=== PATIENT | male | born 1975 | race Caucasian/White ===

== ENCOUNTER 2020-09-22 20:22 | Emergency (ER) | payer OTHER, SELFPAY ==
[2020-09-22 20:27] VITALS: BP 145/88; PULSE 73; RESP 16; TEMP 37.3; O2SAT 98; BMI 22.4
--- NOTE | 2020-09-22 20:34 | ECG_ITS ---
Test Reason : CP/IVDA Blood Pressure : / mmHG Vent. Rate : 075 BPM Atrial Rate : 075 BPM P-R Int : 186 ms QRS Dur : 084 ms QT Int : 386 ms P-R-T Axes : 056 023 006 degrees QTc Int : 431 ms Normal sinus rhythm Normal ECG No previous ECGs available Referred By: Generic ED Physician Electronically Signed By:CHRISTIANO WARREN
--- NOTE | 2020-09-22 20:52 | ED.CHESTPAIN ---
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 Also patient complaining of chest pain since afternoon today used cocaine at 10:00. No radiation of pain no shortness of breath no diaphoresis no loss of consciousness no cough Related Data Allergies Allergy/AdvReac Type Severity Reaction Status Date / Time No Known Allergies Allergy Verified 09/22/20 20:26 Review of Systems Review of Systems: Constitutional : No Weight loss, No Fever, No Chills ENT/Mouth : No sore throat, No Rhinorrhea Eyes: No Eye Pain, No Swelling Cardiovascular : + Chest Pain, no palpitations Respiratory : No Cough, No Sputum, no shortness of breath Gastrointestinal : no Nausea, No Vomiting, No Diarrhea, No abdominal Pain, no black stools Genitourinary : No Dysuria, No Urinary Frequency Musculoskeletal : No joint pain, No Myalgias, No Joint Swelling Skin : No Skin Lesions, No rash Neuro : No Weakness, No Numbness, No Dizziness, No Headache Psych : No Anxiety/Panic, No Depression Heme/Lymph: No Bruising, No Lymphadenopathy Endocrine : No Polyuria, No Polydipsia All other systems reviewed and are negative [facility] Past Medical History Medical History Asthma HIV (human immunodeficiency virus infection) Hypertension IVDU (intravenous drug user) Social History Social History Advance Directives: No Advance Directives Information Provided: No Physical Exam Vital Signs: Vital Signs: Last Vital Signs Temp 98.3 F 09/22/20 22:00 Pulse 75 09/22/20 22:00 Resp 18 09/22/20 22:00 BP 130/72 09/22/20 22:00 Pulse Ox 98 09/22/20 22:00 Body Mass Index 22.4 Appearance: Alert. Oriented X3. No acute distress. Eyes: PERRLA, No Nystagmus ENT: Pharynx normal. Oral Mucosa moist Neck: Normal inspection. Neck supple. CVS: Normal heart rate and rhythm. Pulses normal. Respiratory: No respiratory distress. Equal air entry bilateral, no wheezing/rales/rhonchi Abdomen: Soft and nontender. Bowel sounds are present, no mass palpable, no CVA tenderness Skin: Skin warm and dry. Normal skin color. Normal skin turgor. IVDA duke++ Extremities: No lower extremity edema. No calf tenderness Neuro: Oriented X 3. No motor deficit. No sensory deficit.No cerebellar signs , cranial nerves II-XII intact MDM - Chest Pain MDM Narrative Medical decision making narrative: Patient with atypical chest pain no EKG changes , troponin is negative. Patient has bed in detox in the morning will go home and go to detox place the morning Lab Data Attestation: I reviewed the patient's lab results. Result diagrams: 09/22/20 21:43 09/22/20 21:43 Labs: Lab Results 09/22/20 09/22/20 09/22/20 Range/Units 21:01 21:01 21:24 WBC (4.8-10.8) X10*3/uL RBC (4.60-5.80) X10*6/uL Hgb (14.0-18.0) g/dl Hct (42-52) % MCV (80-98) fL MCH (27.0-33.0) pg MCHC (31.0-36.0) g/dl RDW (11.0-16.0) % Plt Count (160-400) X10*3/uL MPV (9.4-12.4) fL Immature Gran % (Auto) (0.0-0.4) % Neut % (Auto) (45-73) % Lymph % (Auto) (20-40) % [place] % (Auto) (2-11) % Eos % (Auto) (0-4) % Baso % (Auto) (0-2) % Lymph # (Auto) (1.2-4.9) X10*3/uL [place] # (Auto) (0.1-1.2) X10*3/uL Eos # (Auto) (0.0-0.4) X10*3/uL Baso # (Auto) (0.0-0.2) X10*3/uL Abs Immat Gran (auto) (0.00-0.03) X10*3/uL Absolute Neuts (auto) (2.0-8.3) X10*3/uL Absolute Nucleated RBC (0.0-0.012) X10*3/uL Nucleated RBC % (auto) (0.0-0.2) /100WBC Sodium (135-145) mmol/L Potassium (3.3-5.1) mmol/L Chloride (96-108) mmol/L Carbon Dioxide (22-29) mmol/L Anion Gap (12-20) BUN (9-16) mg/dL Creatinine (0.5-1.4) mg/dL Estim Creat Clear Calc Estimated GFR Random Glucose (60-115) mg/dL Calcium (8.4-10.2) mg/dL Troponin I High Sens (<3.5-35.0) ng/L Urine Color YELLOW Urine Appearance CLEAR Urine pH 7.0 (5.0-8.0) Ur Specific [place] 1.010 (1.005-1.025) Urine Protein NEG (NEG-TRACE) MG/DL Urine Glucose (UA) NEG (NEG) MG/DL Urine Ketones NEG (NEG) MG/DL Urine Blood NEG (NEG) Urine Nitrite NEG (NEG) Ur Leukocyte Esterase NEG (NEG) Urine RBC 0-2 (0) /HPF Urine WBC 0 (0-4) /HPF Ur Squamous Epith Cells NONE /LPF Amorphous Sediment 2+ /LPF Urine Bacteria NONE /LPF Urine Opiates Screen POSITIVE H (Not Detect) Ur Barbiturates Screen Not Detected (Not Detect) Ur Phencyclidine Scrn Not Detected (Not Detect) Ur Amphetamines Screen Not Detected (Not Detect) U Benzodiazepines Scrn Not Detected (Not Detect) Urine Cocaine Screen POSITIVE H (Not Detect) U Marijuana (THC) Screen Not Detected (Not Detect) COVID-19 ([place]) Negative (Negative) COVID-19 Clin Com See Note 09/22/20 09/22/20 09/22/20 Range/Units 21:43 21:43 21:43 WBC 4.4 L (4.8-10.8) X10*3/uL RBC 4.72 (4.60-5.80) X10*6/uL Hgb 11.9 L (14.0-18.0) g/dl Hct 38.2 L (42-52) % MCV 80.9 (80-98) fL MCH 25.2 L (27.0-33.0) pg MCHC 31.2 (31.0-36.0) g/dl RDW 13.2 (11.0-16.0) % Plt Count 136 L (160-400) X10*3/uL MPV 12.1 (9.4-12.4) fL Immature Gran % (Auto) 0.2 (0.0-0.4) % Neut % (Auto) 38.5 L (45-73) % Lymph % (Auto) 43.3 H (20-40) % Windham % (Auto) 12.2 H (2-11) % Eos % (Auto) 5.3 H (0-4) % Baso % (Auto) 0.5 (0-2) % Lymph # (Auto) 1.9 (1.2-4.9) X10*3/uL [place] # (Auto) 0.5 (0.1-1.2) X10*3/uL Eos # (Auto) 0.2 (0.0-0.4) X10*3/uL Baso # (Auto) 0.0 (0.0-0.2) X10*3/uL Abs Immat Gran (auto) 0.01 (0.00-0.03) X10*3/uL Absolute Neuts (auto) 1.7 L (2.0-8.3) X10*3/uL Absolute Nucleated RBC 0.000 (0.0-0.012) X10*3/uL Nucleated RBC % (auto) 0.0 (0.0-0.2) /100WBC Sodium 141 (135-145) mmol/L Potassium 3.7 (3.3-5.1) mmol/L Chloride 107 (96-108) mmol/L Carbon Dioxide 26 (22-29) mmol/L Anion Gap 12 (12-20) BUN 15 (9-16) mg/dL Creatinine 0.79 (0.5-1.4) mg/dL Estim Creat Clear Calc 85.5 Estimated GFR > 60 Random Glucose 102 (60-115) mg/dL Calcium 9.1 (8.4-10.2) mg/dL Troponin I High Sens < 3.5 (<3.5-35.0) ng/L Urine Color Urine Appearance Urine pH (5.0-8.0) Ur Specific [place] (1.005-1.025) Urine Protein (NEG-TRACE) MG/DL Urine Glucose (UA) (NEG) MG/DL Urine Ketones (NEG) MG/DL Urine Blood (NEG) Urine Nitrite (NEG) Ur Leukocyte Esterase (NEG) Urine RBC (0) /HPF Urine WBC (0-4) /HPF Ur Squamous Epith Cells /LPF Amorphous Sediment /LPF Urine Bacteria /LPF Urine Opiates Screen (Not Detect) Ur Barbiturates Screen (Not Detect) Ur Phencyclidine Scrn (Not Detect) Ur Amphetamines Screen (Not Detect) U Benzodiazepines Scrn (Not Detect) Urine Cocaine Screen (Not Detect) U Marijuana (THC) Screen (Not Detect) COVID-19 ([place]) (Negative) COVID-19 Clin Com ECG Data ECG #1: Attestation: I personally reviewed and interpreted this ECG as follows: Interpretation: Normal sinus rhythm heart rate 75 beats per minute normal intervals normal axis no acute ST T wave changes no acute ischemia Discharge Plan Discharge Clinical Impression: Atypical chest pain, Substance abuse Patient Disposition: Home, Self-Care Instructions: Chest Pain (ED), Polysubstance Abuse (ED) Additional Instructions: Do not use cocaine/heroin Follow-up with detox Medically cleared for detox admission
[2020-09-22 21:09] LABS: Glucose Urine UA NEG (NEG); Leukocyte Esterase Urine NEG (NEG); Nitrite Urine NEG (NEG); Urine Blood NEG (NEG); Urine Ketones NEG (NEG); Urine Protein NEG (NEG-TRACE)
[2020-09-22 21:11] LABS: Appearance Urine CLEAR; Color Urine YELLOW
[2020-09-22 21:19] LABS: Amorphous Sediment Urine 2+ /LPF; RBC Urine 0-2 /HPF (0); WBC Urine 0 /HPF (0-4)
[2020-09-22 21:32] LABS: Amphetamine Screen Urine Not Detected (Not Detect); Barbiturates, Urine Not Detected (Not Detect); Benzodiazepines Screen Urine Not Detected (Not Detect); Cannabinoid Screen Urine Not Detected (Not Detect); Cocaine Screen Urine POSITIVE (Not Detect); Opiate Screen Urine POSITIVE (Not Detect); Phencyclidine Screen Urine Not Detected (Not Detect)
[2020-09-22 21:48] LABS: MANUAL DIFF FLAG NO
[2020-09-22 21:49] LABS: Basophils Percent Auto 0.5 % (0-2); Eosinophils Absolute Auto 0.2 X10*3/uL (0.0-0.4); Eosinophils Percent Auto 5.3 % (0-4); Hematocrit 38.2 % (42-52); Hemoglobin 11.9 g/dl (14.0-18.0); Imm Gran Abs Auto 0.01 X10*3/uL (0.00-0.03); Imm Gran Pct Auto 0.2 % (0.0-0.4); Lymphocytes Absolute Auto 1.9 X10*3/uL (1.2-4.9); Lymphocytes Percent Auto 43.3 % (20-40); Mean Corpuscular HGB Conc 31.2 g/dl (31.0-36.0); Mean Corpuscular Hemoglobin 25.2 pg (27.0-33.0); Mean Corpuscular Volume 80.9 fL (80-98); Mean Platelet Volume 12.1 fL (9.4-12.4); Monocytes Absolute Auto 0.5 X10*3/uL (0.1-1.2); Monocytes Percent Auto 12.2 % (2-11); Neutrophils Absolute Auto 1.7 X10*3/uL (2.0-8.3); Neutrophils Percent Auto 38.5 % (45-73); Platelet Count 136 X10*3/uL (160-400); Red Blood Count 4.72 X10*6/uL (4.60-5.80); Red Cell Distribution Width 13.2 % (11.0-16.0); White Blood Count 4.4 X10*3/uL (4.8-10.8)
--- NOTE | 2020-09-22 21:51 | PC.NURSE ---
While the patient was using the bathroom and providing urine specimen, high school academic coach (Renato) was at the bedside with the patient, and reports that the patient took some pills . When this RN asked the patient what medication/drug he took, pt stated a couple of Klonopin . Denies SI/HI. Admits to IV Heroin and Cocaine use earlier today, but seeking detox. Belongings removed from bedside and searched/secured by security in ED Pod Locker #9. No pills, drugs, weapons, or other contraband found by this RN or security. Changeover without issue. Pt then moved to ED 6Hall for close observation. Vitals unchanged. Will continue to monitor.
[2020-09-22 21:56] LABS: COVID-19 Test Negative (Negative)
[2020-09-22 22:00] VITALS: BP 130/72; PULSE 75; RESP 18; TEMP 36.8; O2SAT 98
[2020-09-22 22:11] LABS: Anion Gap 12 (12-20); Blood Urea Nitrogen 15 mg/dL (9-16); Calcium 9.1 mg/dL (8.4-10.2); Carbon Dioxide 26 mmol/L (22-29); Chloride 107 mmol/L (96-108); Creatinine Clr Calc Pharmacy 85.5; Estimated Glomerular Filt Rate > 60; Glucose Random 102 mg/dL (60-115); Potassium 3.7 mmol/L (3.3-5.1); Sodium 141 mmol/L (135-145)
[2020-09-22 22:16] LABS: Troponin-I High Sensitivity < 3.5 ng/L (<3.5-35.0)
--- NOTE | 2020-09-22 22:46 | PC.NURSE ---
Plan to discharge home with mother. Renato (literacy coach) spoke with patient's mother, and is arranging bed at [facility] tomorrow morning. Pt ambulating with steady gait, vitals stable, speaking in clear full sentences.
== END 2020-09-22 23:16 | disposition home or self-care (01) ==
PROVIDERS: Emergency Provider Internal Medicine
DX: R07.89 Other chest pain (principal); F19.10 Other psychoactive substance abuse, uncomplicated; F14.10 Cocaine abuse, uncomplicated; Z20.822 Contact with and (suspected) exposure to COVID-19; B20 Human immunodeficiency virus [HIV] disease; I10 Essential (primary) hypertension; J45.909 Unspecified asthma, uncomplicated
CPT/HCPCS: 36415; 80048; 80307; 81001; 84484; 85025; 87635; 93005; 99283; 99284

== ENCOUNTER 2020-09-25 15:42 | Inpatient (IN) | payer OTHER, SELFPAY ==
[2020-09-25 16:31] VITALS: BP 113/70; PULSE 69; RESP 16; O2SAT 98
--- NOTE | 2020-09-25 16:58 | MHC.CARE ---
Brought CV to patient, he stated he came to the hospital primarily for detox but did agree to stay for mental health treatment as well. Patient said that he has court tomorrow and also wanted his mother called to tell her he is in the hospital and gave her number. Information passed to RN
[2020-09-25 18:00] VITALS: BP 134/77; PULSE 62; TEMP 36.6; O2SAT 96
[2020-09-25] MEDS: Buprenorphine/Naloxone 2/0.5mg FILM 1 FILM SUBLINGUAL (20:04)
[2020-09-25] MEDS: Baclofen 10 MG TABLET PO (21:31)
[2020-09-25 21:32] VITALS: BP 134/77; PULSE 62
[2020-09-25] MEDS: cloNIDine HCL 0.1 MG TABLET PO (21:32)
[2020-09-25] MEDS: Acetaminophen 325 MG TABLET 650 MG PO (21:32)
[2020-09-25] MEDS: LORazepam 1 MG TABLET PO (21:35)
--- NOTE | 2020-09-25 22:13 | PC.ADMIT ---
Nursing admission note: 45 year old male DX: Unspecified Bipolar disorder, Stimulant use disorder, severe, cocaine, Unspecified anxiety disorder. Referred for treatment by CARE team. Signed conditional voluntary. A + O x2 place and name, not day or date. Minimally engaged, focused on discomfort related to opiate abuse/withdral. States he has been using 3 bundles of heroin daily for at least the last month. States last use was 2 days ago. Denies SI/HI plan or intent at this time. States he does not have mental illness and is only here for detox . Denies depression or sadness, denies anxiety. Denies perceptual disturbances, denies A/V hallucinations. Denies prior inpatient admissions, detox x1 at [facility]. Patient reporting incongruent with crisis evaluation (reflected +SI with plan to OD). Medical history includes life threatening illness, HCV, HTN, Asthma, GERD and BPH. NKDA. Reports court tomorrow due to stealing from grocery store. Oriented to unit, signed release of information. In bed most of shift. See crisis evaluation for complete details.
[2020-09-26 06:00] VITALS: BP 110/67; PULSE 66; RESP 16; O2SAT 98
[2020-09-26 07:43] LABS: Cholesterol 110 mg/dL; HDL Cholesterol 30 mg/dL; LDL Cholesterol Calculated 65 mg/dl; Triglycerides 79 mg/dL
[2020-09-26 08:06] LABS: Free T4 (Free Thyroxine) 0.88 ng/dL (0.71-1.85); Thyroid Stimulating Hormone 0.85 uIU/mL (0.32-4.0)
[2020-09-26 08:23] LABS: Vitamin B12 452 pg/mL (200-900)
[2020-09-26 08:38] LABS: Estimated Average Glucose 114 mg/dL; Hemoglobin A1c % 5.6 %
[2020-09-26] MEDS: Famotidine 20 MG TABLET PO (09:03)
--- NOTE | 2020-09-26 10:14 | MHC.RECOVRN ---
T/w met with pt after question of precipitated withdrawal on 09/25. Pt reports using heroin, approx 3 bundles daily, IV, for a couple weeks, last use on Wednesday. Pt reports being established at [facility] and being prescribed Suboxone there. However, per [facility], pts last Suboxone prescription was filled on 07/16/20. Pt would like to continue receiving Suboxone through [facility] after discharge. Currently, pt reports feeling sick and requesting Suboxone. Pt reports chills and body aches. Pt reports feeling great after receiving dose yesterday evening. Pt would like to receive 4 mg BID as opposed to 8 mg QD. Case discussed with Tiki Hurd APRN.
[2020-09-26] MEDS: Buprenorphine/Naloxone 4/1 mg FILM 1 FILM SUBLINGUAL ×2 (10:29→17:14)
[2020-09-26] MEDS: Nicotine 21 MG PATCH.TD24 TRANSDERMA (14:36)
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
[2020-09-26 20:42] VITALS: BP 141/81; PULSE 77; RESP 18; TEMP 37.3; O2SAT 96
[2020-09-26] MEDS: Acetaminophen 325 MG TABLET 650 MG PO (23:43)
[2020-09-26] MEDS: LORazepam 1 MG TABLET PO (23:50)
--- NOTE | 2020-09-27 00:10 | CONS_ITS ---
DATE OF SERVICE: 09/26/2020 REASON FOR CONSULTATION: Medical management. HISTORY OF PRESENT ILLNESS: This is a 45-year-old gentleman with past medical history significant for HIV, history of hypertension, asthma, and active heroin and cocaine use. The patient presented initially to [facility] on 09/22 due to chest discomfort after using heroin at 10 a.m. and presented the same afternoon. He describes his chest pain to be localized in the chest with no radiation. No associated shortness of breath or diaphoresis. No loss of consciousness, and EKG showed no acute ischemic changes. His laboratory data showed a hematocrit 38.2 and a troponin of less than 3.5. It was felt that the patient's chest pain is atypical and he was supposed to be discharged home for outpatient detox. However, the patient is currently admitted under psychiatric unit with concern for underlying psychiatric history and self-harm. At present, the patient offers no acute medical complaints other than nausea and no abdominal pain, no vomiting. He is saying that he is happy and he wants to do detox. He denies any headache. He denies any chest discomfort. He denies any shortness of breath or cough. He has been tolerating diet. PAST MEDICAL HISTORY: Significant for: 1. Hypertension. 2. Asthma. 3. HIV. 4. History of IV drug abuse. SOCIAL HISTORY: As per intake note, the patient is homeless. He is a current every day smoker. He smokes 1 pack per day. The patient uses crack cocaine, heroin, and opiates on a daily basis. FAMILY HISTORY: The patient is not aware of any history of premature coronary artery disease or colon cancer in family. CURRENT MEDICATIONS: The patient is on Pepcid 20 mg b.i.d., nicotine 21 mg transdermally daily, clonidine 0.1 mg q.6 hours as needed, baclofen 10 mg t.i.d. p.r.n., Ativan 1 mg q.4 hours p.r.n., Imodium 2 mg q.4 hours p.r.n., Maalox 30 mL q.6 hours as needed, Atarax 50 mg every 6 hours p.r.n., trazodone 100 mg at bedtime as needed, Seroquel 50 mg p.o. q.6 hours p.r.n. ALLERGIES: HE HAS NO KNOWN DRUG ALLERGIES. REVIEW OF SYSTEMS: MOTION GRAPHICS ARTIST: No headache. No dizziness. CVS: No chest pain or palpitation. GASTROINTESTINAL: Complaining of nausea. No vomiting, no diarrhea, no abdominal pain. : No urinary symptoms of urgency or frequency. PHYSICAL EXAMINATION: GENERAL: The patient is resting comfortably, offers no acute complaints. VITAL SIGNS: Blood pressure 110/67, pulse of 66, respiratory rate 16, O2 saturation 98% on room air. NECK: Supple. No JVD. Oral mucosa moist. No lymphadenopathy. LUNGS: Clear to auscultation. HEART: Regular rate and rhythm. ABDOMEN: Soft, nontender. Bowel sounds audible. EXTREMITIES: Without clubbing, cyanosis, or edema. SKIN: With multiple track duke both upper extremities. No open sores noted. NEURO: Speech is clear. Moving all 4 extremities. Awake and alert. LABORATORY DATA: 1. Hemoglobin A1c 5.6. Blood sugar 114, total cholesterol 110, LDL 65, B12 of 452, TSH 0.85. 2. Hematocrit 38.2, MCV 80.9, platelets of 136. No prior platelet count available. ASSESSMENT AND PLAN: 1. This is a 45-year-old gentleman with history of active IV drug use. The patient admits using cocaine and heroin on a regular basis, has been admitted on the psychiatric unit. Continue current p.r.n. medications for withdrawal. 2. Asthma. The patient has no acute exacerbation, continue as needed inhalers.. 3. History of hypertension. The patient's blood pressure is stable, not on antihypertensive medications. We will continue to follow the patient's blood pressure closely. 4. History of HIV. The patient not on haart medication. As per patient, he follows with HIV physician in [facility].outpt follow up. 5. History of tobacco use disorder. Continue nicotine patch 21 mg daily. Support provided. Counseling done. 6. Deep vein thrombosis prophylaxis. will recommend early ambulation. 7. In regard to mild nausea, likely due to withdrawal, we will add p.r.n. Zofran. The patient is on Pepcid that will help with symptoms of dyspepsia. MD RFANKY Otto/SHMUEL / [id number] [facility]
[2020-09-27 06:00] VITALS: BP 112/82; PULSE 65; RESP 16; O2SAT 96
[2020-09-27] MEDS: Buprenorphine/Naloxone 4/1 mg FILM 1 FILM SUBLINGUAL (09:46)
[2020-09-27] MEDS: Famotidine 20 MG TABLET PO (09:46)
[2020-09-27] MEDS: Nicotine 21 MG PATCH.TD24 TRANSDERMA (09:46)
--- NOTE | 2020-09-27 14:41 | PC.NURSE ---
Pt discharged to home with all belongings. Pt is bright, denies SI/HI or urges to use. DC instructions provided in [place].
--- NOTE | 2020-11-13 15:46 | PM.PSYDC ---
DS: Providers Provider Date of Service: 09/29/20 Date of admission: 09/25/20 15:42 Primary care physician: Unknown Physician Consults: 09/26/20 02:31 Consult to Hospitalist Routine Consulting Provider: Hospitalist Reason For Exam: 24 hour med consult. 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: Status: Acute (4) MDD (major depressive disorder), recurrent episode, moderate: Status: Acute DS: Medications Discharge Medications Home Medications: Previous Rx's Medication Instructions Recorded buprenorphine-naloxone [Suboxone] 1 film SUBLINGUAL BID #20 ea 09/27/20 Discharge Plan Discharge Patient Disposition: Home, Self-Care Discharge Diagnosis: MDD, recurrent, moderate Opioid Use Disorder Referrals: Christine Pires (therapist) [Other] - 09/28/20 12:30 pm (De telefono) Shanelle Stanley (psychiatrist) [Other] - 10/22/20 10:00 am (De telefono) Shanelle Stanley (psychiatrist) [Other] - 11/21/20 12:50 pm (De telefono) [facility] (programa de rehabil[facility]acion) [Other] (llamar todas las mananas para preguntar por rica) [facility] [Other] (Go to clinic with last dose letter and set up an appointment for Suboxone) Physician,Unknown [Primary Care Provider] - 1 Week Discharge Medications: New buprenorphine-naloxone [Suboxone] 4-1 mg film 1 film sublingual BID Qty: 20 RF: 0 Discharge Orders: Discharge Order (Routine); Ordered 09/27/20 Ordered By: Hazel Menendez Diet: regular diet Activity on Discharge: As tolerated Stand Alone Forms: Patient Portal Discharge page Care Plan Goals: 1. follow with referrals Health Concerns: 1. Follow up with PCP at [facility] Plan of Treatment: 1. Need to restablished care with [facility] 2. Go to nearest ED or call 911 in event of emergency Assessment: No SI/HI. Stable. Discharge Date/Time: 09/27/20 14:30 Mental Status Exam Mental Status Exam Narrative: Appearance: dissheveled, in visible discomfort due to opioid withdrawal Behavior: cooperative Psychomotor: no agitation or retardation noted Speech: clear, normal rate/rhythm/volume, spontaneous TP: linear TC: no signs of psychosis, hopeless, wanting to stop drugs Mood: in pain Affect:congruent SI:adamantly denies HI: none AH/VH: none Delusions:none Insight/judgment: fair x 2. Memory/cog: alert, oriented x 3. grossly intact to conversational testing. DS: Summary Hospital Course Hospital Course: Mr. Briceño is a 45 year-old male with hx of opioid dependence, mood disorder. He initially self presented to [facility] reporting suicidal ideation in context of recent relapsed on heroin and fentanyl. This is his first inpatient psychiatric admission. In the ED [facility]- CBC showed leukopenia, low Hgb (13.1)/HCT, chem-7 wnl, AST/ALT/Alkaline phosphatase wnl. Troponin <0.01. His utox was positive for cocaine, opioid screen was negative, but note that pt reports using fentanyl, which was not checked. Per emergency note on 09/23/2020, pt initially told staff at [facility] that he had intentional overdose on gabapentin, tramadol and clonazepam with intent to end his life. HOSPITAL COURSE On the unit, Mr. Briceño adamantly denies suicidal ideation. He reports that he expressed suicidal ideation because he was desperate to get into a program mostly for detox. He reported symptoms of opioid withdrawal including GI disturbances, sweating, feeling very anxious, muscle aches. He had suboxone earlier at [facility]- 8mg, which pt thinks precipitated withdrawal symptoms. On the unit, he reports he wants to continue on suboxone. He received another suboxone 2mg SL at about 8pm, which pt reported did helped with withdrawal symptoms. Pt denies hx of VH/AH. Collateral information gathered from family who denies safety concerns. Pt reports wanting mostly to resume suboxone but denied any safety concern and decline referrals for OP psychiatric treatment. Past Psychiatric History: Inpatient: none OP: none Suboxone clinic at [facility] but his case was closed due to no shows in July 24. Suicide attempts: denies Past medication trials: sertraline Time spent discussing smoking cessation with patient: more than 10 minutes Status at Discharge Cognitive/behavioral status at discharge: No SI/HI. No signs of aggression towards self or others. Functional status at discharge: independent ambulation Overall status at discharge: patient is not back to baseline Time Spent with Patient Time attestation: Total time spent providing and/or coordinating discharge services:
== END 2020-09-27 14:30 | disposition home or self-care (01) | DRG 751 ==
PROVIDERS: Admitting Provider Psychiatry & Neurology Psychiatry; Visit Provider Social Worker
DX: F33.1 Major depressive disorder, recurrent, moderate (principal); R45.851 Suicidal ideations; F11.288 Opioid dependence with other opioid-induced disorder; F11.23 Opioid dependence with withdrawal; Z21 Asymptomatic human immunodeficiency virus [HIV] infection status; F17.210 Nicotine dependence, cigarettes, uncomplicated; J45.909 Unspecified asthma, uncomplicated; Z59.0 Homelessness; Z71.6 Tobacco abuse counseling
CPT/HCPCS: 36415; 80061; 82607; 83036; 84439; 84443